=== PATIENT | male | born 1990 | race Caucasian/White ===

== ENCOUNTER 2025-07-27 12:53 | Emergency (ER) | payer BC, SELFPAY ==
[2025-07-27] VITALS (7 sets, daily range): BP systolic 128–155; BP diastolic 81–104; PULSE 64–98; RESP 13–19; TEMP 36.8; O2SAT 96–100
--- NOTE | ~2025-07-27 | XR_ITS ---
EXAMINATION: XR chest 1V portable COMPARISON: No comparisons available. HISTORY: r/o CVA FINDINGS: The lungs are clear, no effusion. No pneumothorax. Heart is normal size. Mediastinal and hilar contours are within normal limits. Bony thorax no acute abnormality. Miscellaneous: None Impression: No acute cardiopulmonary abnormality. Reviewed, dictated and finalized at location P. ESSION WORKER Impression: No acute cardiopulmonary abnormality.
--- NOTE | ~2025-07-27 | CT_ITS ---
CT brain without contrast HISTORY:CVA COMPARISON: None. TECHNIQUE: Multiplanar images were obtained of the head without intravenous contrast. FINDINGS: ICH: No acute intracranial hemorrhage, mass effect or midline shift. No extra- axial fluid collections. Mass(es): There is no mass or mass effect seen. CVA: No evidence of acute infarct is seen. CSF Spaces: There is no evidence of hydrocephalus. The CSF spaces are Skull: The calvarium is intact. Sinuses/MastoidsVisualized paranasal sinuses and mastoid air cells are clear. IMPRESSION: No acute findings. No significant abnormality is seen. I discussed the case with Dr. Sheridan at [address] scans at this facility are performed using low dose modulation techniques as appropriate to perform exam including the following: automated exposure control; use of iterative reconstruction technique; adjustment of the mA and/or kV according to patient size (this includes techniques or standardized protocols for targeted exams where dose is matched to indication/reason for exam). Reviewed, dictated and finalized at location A. ETING CONSULTANT IMPRESSION: No acute findings. No significant abnormality is seen. I discussed the case with Dr. Sheridan at [address] scans at this facility are performed using low dose modulation techniqu es as appropriate to perform exam including the following: automated exposure c ontrol; use of iterative reconstruction technique; adjustment of the mA and/or kV according to patient size (this includes techniques or standardized protocol s for targeted exams where dose is matched to indication/reason for exam).
--- OUTSIDE RECORDS SUMMARY | 2025-07-27 12:57 | XMS_ITS | Clinical Summary ---
Author Organization [facility] Address [address] [place] [id number] Care Team Providers Care Fire Services Plumber Name Role Phone Unavailable Primary Care Provider Unavailabl e Social History Tobacco Use Types Packs/Day Years Used Date Smoking Tobacco: Never Assessed Sex and Gender Information Value Date Recorded Sex Assigned at Not on file Legal Sex Male 8:06 PM CDT Gender Identity Not on file Sexual Orientation Not on file Plan of Treatment Health Maintenance Due Date Last Done Comments Annual Physical 1991 Hepatitis C 2006 DTaP, Tdap and Td Vaccines ( 1 - Tdap) 2007 Hepatitis B Vaccines (1 of 3 - 19+ 3-dose series) 2007 HPV Vaccines (1 - 3-dose SCD M series) 2015 COVID-19 Vaccine (2024-2 6 season) 2025 Influenza Adult (#1) 2025 Hepatitis A Vaccines Aged Out No long er eligible based on patient's age to complete this topic Meningococcal B Vaccine Aged Out No l onger eligible based on patient's age to complete this topic Meningococcal Vaccine Aged Out No jose lorene eligible based on patient's age to complete this topic Pneumococcal Vaccine: Pediat rics (0 to 5 Years) and At-Risk Patients (6 to 49 Years) Aged Out No longer eligible b ased on patient's age to complete this topic RSV Immunizations Under 20 Months Aged Out No longer eligible based on patient's age to complete this topic
--- NOTE | 2025-07-27 13:07 | ECG_ITS ---
Test Date: 2025-07-27 13:19:31 Measurements Intervals [place] Rate: 84 P: 31 [place]: 150 QRS: 21 QRSD: 89 T: 3 QT: 342 QTc: 405 Interpretive Statements SINUS RHYTHM WITHIN NORMAL LIMITS No previous ECG available for comparison Electronically Signed On 07-27-2025 13:29:51 SKIN PASS OPERATOR by Keith Lopez M.D.
[2025-07-27 13:19] LABS: Hematocrit 49.9 % (42.0-52.0); Hemoglobin 16.7 g/dL (14.0-18.0); Immature Granulocyte Percent A 1.4 % (0-0.5); Lymphocytes Absolute Auto 2.19 K/mm3 (0.9-3.2); Mean Corpuscular HGB Conc 33.5 g/dl (32-36); Mean Corpuscular Hemoglobin 29.2 pg (26-34); Mean Corpuscular Volume 87.2 fl (80-100); Nucleated Red Blood Cells Absolute Auto 0.000 K/mm3 (0.0-0.012); Nucleated Red Blood Cells Perc 0.0 % (0.0-0.2); Platelet Count Result 290 k/mm3 (150-375); Red Blood Count 5.72 M/mm3 (4.6-6.20); White Blood Count 8.7 K/mm3 (4.5-10.0)
[2025-07-27 13:28] LABS: INR 1.0; Prothrombin Time 13.3 Seconds (11.1-14.7)
[2025-07-27 13:29] LABS: Partial Thromboplastin Time 26.5 Seconds (22.3-36.8)
[2025-07-27] MEDS: diazePAM INJ (*CRX) 10 MG/2 ML SYRINGE 5 MG IV PUSH (13:29)
[2025-07-27 13:34] LABS: Alanine Aminotransferase 42 U/L (6-50); Albumin Level 5.1 g/dL (3.5-5.1); Alkaline Phosphatase 74 U/L (38-126); Anion Gap 12 mmol/L (4-12); Aspartate Amino Transferase 41 U/L (17-59); Bilirubin,Total 0.6 mg/dL (0.2-1.3); Blood Urea Nitrogen 11 mg/dL (9-20); Calcium 9.3 mg/dL (8.4-10.2); Carbon Dioxide 26 mmol/L (22-30); Chloride 99 mmol/L (98-107); Estimated CRCL calculation 94 ml/min; Estimated Glomerular Filt Rate > 60; Glucose 107 mg/dL (65-110); Potassium 3.7 mmol/L (3.4-5.0); Sodium 137 mmol/L (137-145); Total Protein 9.0 g/dL (6.3-8.2)
[2025-07-27 13:41] LABS: Troponin I < 0.012 ng/mL (0.000-0.034)
--- OUTSIDE RECORDS SUMMARY | 2025-07-27 13:41 | XMS_ITS | Clinical Summary ---
Author Organization [facility] Address [address] [place] [id number] Care Team Providers Care Police Radio Dispatcher Name Role Phone Unavailable Primary Care Provider [...]
--- OUTSIDE RECORDS SUMMARY | 2025-07-27 13:41 | XMS_ITS | Clinical Summary ---
Author Organization [facility] Address [facility] [facility] [place] [address] Care Team Providers Care Director Sales And Trade Marketing Name Role Phone Unavailable Primary Care Provider Unavailabl e Source Comments [facility],non-owned Affiliates and Associated Physician Practices is amultiple site organization consisting of ambulatory clinics and hospital sitesin [place], [place], [place] and [place]. This disclosure is being madepursuant to the Care Everywhere program and may not contain all information available regarding this patient. Last updated 18.[facility] Allergies No known active allergies Medications * Be aware that medications may not be up to date on this document. Alwaysverify current medications with the patient. No known medications Social History Tobacco Use Types Packs/Day Years Used Date Smoking Tobacco: Never Assessed Sex and Gender Information Value Date Recorded Sex Assigned at Not on file Legal Sex Male 10:03 AM SUPERVISOR LOGGING Gender Identity Not on file Sexual Orientation Not on file Last Filed Vital Signs Vital Sign Reading Time Taken Comments Blood Pressure 134/88 10/09/2019 4:27 PM SUPERVISOR LOGGING Pulse 117 10/09/2019 4:27 PM SUPERVISOR LOGGING Temperature 37.1 C (98.8 F) 10/09/2019 4:27 PM SUPERVISOR LOGGING Respiratory Rate 16 10/09/2019 4:27 PM SUPERVISOR LOGGING Oxygen Saturation 99% 10/09/2019 4:27 PM SUPERVISOR LOGGING Inhaled Oxygen Concentration - - Weight 86.2 kg (190 lb) 10/09/2019 4:27 PM SUPERVISOR LOGGING Height 185.4 cm (6' 1) 10/09/2019 4:27 PM SUPERVISOR LOGGING Body Mass Index 25.07 10/09/2019 4:27 PM SUPERVISOR LOGGING Plan of Treatment Health Maintenance Due Date Last Done Comments HIV SCREENING 2003 HEPATITIS C SCREENING 05/28/2006 DTAP/TDAP/TD VACCINES (1 - Tdap) 2007 HEPATITIS B VACCINE (1 of 3 - 19+ 3-dose series) 2007 HPV VACCINE (1 - 3-dose SCDM series) 2015 DEPRESSION SCREENING 08/30/2024 COVID-19 VACCINE (1 - 2024-2 6 season) 2025 INFLUENZA VACCINE (#1) 2025 ZOSTER VACCINE (1 of 2) 2038 HIB VACCINE Aged Out No longer eligi ble based on patient's age to complete this topic MENINGOCOCCAL (Group B) VACC INE SHARED DECISION-MAKING Aged Out No longer eligibl e based on patient's age to complete this topic MENINGOCOCCAL GROUPS A/C/Y/W VACCINE Aged Out No longer eligible b ased on patient's age to complete this topic PNEUMOCOCCAL VACCINE Aged Out No long er eligible based on patient's age to complete this [place] [address] [place] [address] [facility]
--- NOTE | 2025-07-27 13:48 | ED.GENADULT ---
HPI - General Adult General Chief complaint: Neuro Symptoms/Deficit Stated complaint: L arm numbness at 1100 Time Seen by Provider: 07/27/25 12:59 History of Present Illness HPI narrative: This is a 35-year-old male presenting ED with chief complaint of a strange sensation in his left arm. Patient says he was driving when he felt like he was being poked on the inside of his left arm. He then developed a flushing feeling and a feeling that something was wrong. Says the sensation is very hard to describe. He denies any visual changes, weakness, loss of coordination, loss of consciousness. No history of fevers or recent illness. Patient says that sometimes he gets overwhelming anxiety but he has never been diagnosed with anxiety. Patient also says he has been having palpitations or a twitching feeling on the left side of his chest x-ray his axilla for several years. He has never bothered enough to be evaluated. Related Data Allergies Allergy/AdvReac Type Severity Reaction Status Date / Time No Known Allergies Allergy Verified 07/27/25 13:24 Exam Narrative: APPEARANCE: No apparent distress. Head: atraumatic. EYES: EOMI, NOSE: Atraumatic NECK: Trachea midline RESPIRATORY: No increased rate of breathing CARDIOVASCULAR: RRR, ABDOMINAL: Non-distended MUSCULOSKELETAl: No obvious deformities NEURO: Alert Cranial nerves 2-12 grossly intact. Sensation light touch, motor function cerebellar function intact for 4 extremities. Gait exam was normal. NIH is 0 SKIN:: Warm, dry. Normal color PSYCHIATRIC: Normal affect Course Vital Signs Vital signs: Vital Signs Temperature 98.2 F 07/27/25 13:13 Pulse Rate 96 07/27/25 13:13 Respiratory Rate 18 07/27/25 13:13 Blood Pressure 155/104 H 07/27/25 13:13 Pulse Oximetry 100 07/27/25 13:13 Oxygen Delivery Room Air 07/27/25 13:13 Temperature 98.2 F 07/27/25 13:13 Pulse Rate 98 07/27/25 13:18 Respiratory Rate 17 07/27/25 13:18 Blood Pressure 155/104 H 07/27/25 13:18 Pulse Oximetry 100 07/27/25 13:18 Oxygen Delivery Room Air 07/27/25 13:13 Medical Decision Making [facility] Narrative Medical decision making narrative: -Course: 35-year-old male presenting with a strange sensation in his left upper extremity and flushing. This was associated with feelings of anxiety. The symptoms have since resolved. He was activated as a stroke per triage although his presentation is not consistent with stroke. He has an NIH of 0. Patient was given Valium for anxiolysis while waiting to complete his workup. Patient's workup was unremarkable with a negative CT brain, normal EKG, laboratory studies and troponin negative x2. Patient is re-evaluated and is resting comfortably in bed. He feels much better. He is comfortable following up his primary care physician for further management. Ice and discuss the patient's symptoms with him at length. We discussed that many emergent conditions were ruled out including stroke heart attack, cardiopulmonary pathology -DDX includes but is not limited to: ACS, anxiety, peripheral neuropathy, PE-PERC negative, pneumothorax, CVA Vital Signs Vital Signs: Vital Signs Temperature 98.2 F 07/27/25 13:13 Pulse Rate 96 07/27/25 13:13 Respiratory Rate 18 07/27/25 13:13 Blood Pressure 155/104 H 07/27/25 13:13 Pulse Oximetry 100 07/27/25 13:13 Oxygen Delivery Room Air 07/27/25 13:13 Temperature 98.2 F 07/27/25 13:13 Pulse Rate 98 07/27/25 13:18 Respiratory Rate 17 07/27/25 13:18 Blood Pressure 155/104 H 07/27/25 13:18 Pulse Oximetry 100 07/27/25 13:18 Oxygen Delivery Room Air 07/27/25 13:13 Lab Data 07/27/25 13:11 07/27/25 13:10 Labs: Lab Results 07/27/25 07/27/25 07/27/25 Range/Units 12:59 13:10 13:11 WBC 8.7 (4.5-10.0) K/mm3 RBC 5.72 (4.6-6.20) M/mm3 Hgb 16.7 (14.0-18.0) g/dL Hct 49.9 (42.0-52.0) % MCV 87.2 (80-100) fl MCH 29.2 (26-34) pg MCHC 33.5 (32-36) g/dl RDW 12.5 (11.5-14.5) % Plt Count 290 (150-375) k/mm3 MPV 10.7 H (7.4-10.4) fl Immature Gran % (Auto) 1.4 H (0-0.5) % Neut % (Auto) 64.1 (45.5-73.1) % Lymph % (Auto) 25.3 (18.3-44.2) % [place] % (Auto) 7.1 (2.6-8.5) % Eos % (Auto) 1.2 (0-4.4) % Baso % (Auto) 0.9 (0.2-1.2) % Lymph # (Auto) 2.19 (0.9-3.2) K/mm3 [place] # (Auto) 0.6 (0.1-0.6) K/mm3 Eos # (Auto) 0.1 (0-0.3) K/mm3 Baso # (Auto) 0.1 (0.0-0.1) K/mm3 Abs Immat Gran (auto) 0.12 H (0.00-0.031) K/mm3 Absolute Neuts (auto) 5.6 (1.3-6.7) K/mm3 Absolute Nucleated RBC 0.000 (0.0-0.012) K/mm3 Nucleated RBC % 0.0 (0.0-0.2) % PT 13.3 (11.1-14.7) Seconds INR 1.0 APTT 26.5 (22.3-36.8) Seconds Sodium 137 (137-145) mmol/L Potassium 3.7 (3.4-5.0) mmol/L Chloride 99 (98-107) mmol/L Carbon Dioxide 26 (22-30) mmol/L Anion Gap 12 (4-12) mmol/L BUN 11 (9-20) mg/dL Creatinine 1.08 (0.7-1.3) mg/dL Estim Creat Clear Calc 94 ml/min Estimated GFR > 60 (59 - ) Glucose 107 (65-110) mg/dL POC Capillary Glucose 117 H (65-105) mg/dl Calcium 9.3 (8.4-10.2) mg/dL Total Bilirubin 0.6 (0.2-1.3) mg/dL AST 41 (17-59) U/L ALT 42 (6-50) U/L Alkaline Phosphatase 74 (38-126) U/L Troponin I < 0.012 (0.000-0.034) ng/mL Total Protein 9.0 H (6.3-8.2) g/dL Albumin 5.1 (3.5-5.1) g/dL Discharge Plan Discharge Clinical Impression: Dizziness and giddiness Patient Disposition: Home Condition: Stable Instructions: Antibiotic Form, Paresthesia (ED) Additional Instructions: You were seen for an episode of transient sensation and a head watson. It is unclear what caused your symptoms or although your workup here was negative. Please follow-up with your primary care physician for further management. If you develop any new or worsening symptoms please return to the ED for re-evaluation Patient Language: Emirati Follow-up/Referrals: Bill Horta MD [Primary Care Provider, Family Practice] - 3 Days
--- NOTE | 2025-07-27 16:29 | ECG_ITS ---
Test Date: 2025-07-27 16:43:16 Measurements Intervals [place] Rate: 67 P: 7 [place]: 153 QRS: 10 QRSD: 88 T: -3 QT: 375 QTc: 398 Interpretive Statements SINUS RHYTHM NORMAL ELECTROCARDIOGRAM Compared to ECG 07/27/2025 13:19:31 No significant changes Electronically Signed On 07-28-2025 08:03:06 CATTLE DEALER by Keith Lopez M.D.
[2025-07-27 17:17] LABS: Troponin I < 0.012 ng/mL (0.000-0.034)
== END 2025-07-27 19:22 | disposition home or self-care (01) ==
PROVIDERS: Emergency Provider Emergency Medicine; PCP Emergency Medicine
DX: R42 Dizziness and giddiness (principal)
CPT/HCPCS: 36415; 70450; 71045; 80053; 82948; 84484; 85025; 85610; 85730; 93005; 96374; 99284; J3360